=== PATIENT | male | born 1965 | race Caucasian/White ===

== ENCOUNTER 2019-05-12 13:52 | Emergency (ER) | payer OTHER ==
--- OUTSIDE RECORDS SUMMARY | 2019-05-12 14:01 | XMS REPORT | Continuity of Care Document ---
:1965 External Reference #:[id number] Author Name Edyta Manning Care Team Providers Name Role Phone Dennys Angela III, MD Primary Care Physician Unavailable Payers Date Identification Numbers Payment Provider Subscriber Effective: 2011 Policy Number: [id number] [employer] James Jacques PayID: [id number] [address] [place] [address] Advance Directives Type Date Description Status Comment Other Directive 05/07/2017 Health Care Proxy Current and Verified Problems Active Problems Provider Date Hand joint pain Dennys Angela M.D. Onset: 02/07/2012 Disorder of skin and/or subcutaneous tissue Dennys Angela M.D. Onset: 08/2012 Family history of ischemic heart disease Dennys Angela M.D. 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 Tobacco Use Start: Unknown Never Smoked Cigarettes Smoking Status Reviewed: 04/28/19 Never Smoked Cigarettes ETOH Use Denies alcohol use Tobacco Use Start: Unknown Patient has never smoked Recreational Drug Use Denies Drug Use Exercise Type/Frequency Exercises regularly bikes daily Allergies, Adverse Reactions, Alerts Description No Known Drug Allergies Medications Active Medications SIG Qnty Indications Ordering Provider Date No Active Medications Unknown 04/28/2019 History Medications Atorvastatin Calcium take 1 tablet at 90tabs Z82.49 Kingston Rodriguez 06/19/2018 - bedtime Dilan Luo 04/28/2019 20mg Tablets No Active Medications Unknown 05/14/2017 - 06/19/2018 Cephalexin 1 tablet every 8 21caps L01.00 Melania Garza, 05/07/2017 - 500mg hours M.DShashank 05/14/2017 Capsules No Active Medications Unknown 11/10/2014 - 05/07/2017 Pravastatin Sodium 1 po qd 90tabs V17.3 Dennys Merlos 09/08/2013 - 10mg Dilan Angela 11/10/2014 Tablets Medications Administered in Office Medication SIG Qnty Indications Ordering Provider Date Celestone 3 mg and 3mg Blaire Russell, 03/09/2015 Injection MLiza Immunizations CPT Code Status Date Vaccine Lot # [id number] Given 11/11/2015 Influenza Virus Vaccine, Quadrivalent, Split, [id number] Preservative Free [id number] Given 10/29/2009 Tetanus And Diptheria (Td) For Adult Use Preservative Free Vital Signs Date Vital Result Comment 04/28/2019 10:24am Height 73 inches 6'1" Weight 198.00 lb Heart Rate 60 /min BP Systolic Sitting 123 mmHg BP Diastolic Sitting 76 mmHg BMI (Body Mass Index) 26.1 kg/m2 06/19/2018 12:44pm Height 73 inches 6'1" Weight 192.00 lb w/o shoes Heart Rate 68 /min BP Systolic 106 mmHg Lue reg cuff BP Diastolic 70 mmHg Lue reg cuff BP Systolic Sitting 110 mmHg Rue reg cuff BP Diastolic Sitting 74 mmHg Rue reg cuff BP Systolic Standing 104 mmHg Rue BP Diastolic Standing 70 mmHg Rue Respiratory Rate 16 /min BMI (Body Mass Index) 25.3 kg/m2 06/17/2018 10:02am Height 73 inches 6'1" Weight 194.00 lb Heart Rate 56 /min BP Systolic Sitting 118 mmHg BP Diastolic Sitting 64 mmHg O2 % BldC Oximetry 97 % BMI (Body Mass Index) 25.6 kg/m2 02/26/2018 11:04am Height 73 inches 6'1" Weight 200.00 lb Heart Rate 72 /min BP Systolic 118 mmHg BP Diastolic 70 mmHg O2 % BldC Oximetry 96 % BMI (Body Mass Index) 26.4 kg/m2 Waist Circumference 38 05/07/2017 11:31am Weight 199.12 lb Heart Rate 50 /min BP Systolic 124 mmHg BP Diastolic 76 mmHg Body Temperature 97.0 F O2 % BldC Oximetry 98 % 02/07/2017 1:28pm Height 72.5 inches 6'0.50" Weight 194.00 lb Heart Rate 54 /min BP Systolic Sitting 124 mmHg BP Diastolic Sitting 78 mmHg Respiratory Rate 16 /min O2 % BldC Oximetry 98 % BMI (Body Mass Index) 25.9 kg/m2 11/11/2015 10:14am Height 72.5 inches 6'0.50" Weight 197.00 lb Heart Rate 48 /min BP Systolic Sitting 99 mmHg BP Diastolic Sitting 57 mmHg Body Temperature 96.6 F O2 % BldC Oximetry 97 % BMI (Body Mass Index) 26.3 kg/m2 05/14/2015 3:08pm Weight 195.25 lb Heart Rate 70 /min BP Systolic Sitting 117 mmHg BP Diastolic Sitting 73 mmHg Pain Level 2 03/09/2015 10:59am Height 73 inches 6'1" Weight 190.00 lb Pain Level 1 BMI (Body Mass Index) 25.1 kg/m2 01/07/2015 8:18am Height 73 inches 6'1" Weight 194.00 lb Heart Rate 48 /min BP Systolic 109 mmHg BP Diastolic 65 mmHg BMI (Body Mass Index) 25.6 kg/m2 11/10/2014 10:54am Height 73 inches 6'1" Weight 194.50 lb Heart Rate 80 /min BP Systolic Sitting 108 mmHg BP Diastolic Sitting 78 mmHg Body Temperature 96.1 F BMI (Body Mass Index) 25.7 kg/m2 09/08/2013 9:50am Height 73 inches 6'1" Weight 193.00 lb Heart Rate 62 /min BP Systolic Sitting 118 mmHg BP Diastolic Sitting 74 mmHg BMI (Body Mass Index) 25.5 kg/m2 06/19/2012 3:53pm Height 73 inches 6'1" Weight 190.38 lb Heart Rate 60 /min BP Systolic Sitting 124 mmHg BP Diastolic Sitting 82 mmHg BMI (Body Mass Index) 25.1 kg/m2 06/18/2012 4:08pm Height 73 inches 6'1" Weight 191.00 lb Heart Rate 60 /min BP Systolic Sitting 110 mmHg BP Diastolic Sitting 80 mmHg BMI (Body Mass Index) 25.2 kg/m2 06/13/2012 3:29pm Height 72.75 inches 6'0.75" Weight 190.38 lb Heart Rate 72 /min BP Systolic Sitting 118 mmHg BP Diastolic Sitting 68 mmHg BMI (Body Mass Index) 25.3 kg/m2 02/07/2012 3:18pm Height 72.5 inches 6'0.50" Weight 196.00 lb Heart Rate 72 /min BP Systolic Sitting 124 mmHg BP Diastolic Sitting 64 mmHg BMI (Body Mass Index) 26.2 kg/m2 Results Test Date Facility Test Result H/L Range Note Lipid Profile 04/23/2019 [facility] Triglycerides 68 mg/dL 1 (Trig/Chol/HDL) [address] [place] [address] [phone] Cholesterol 188 mg/dL 2 HDL Cholesterol 49.4 mg/dL 3 LDL Cholesterol 125 mg/dL 4 Laboratory 04/23/2019 [facility] Glucose 96 mg/dL N 70-100 5 test finding [address] [place] [address] [phone] Laboratory 02/26/2018 [facility] Hepatitis C Nonreactive Nonreactive test finding [address] [place] [address] [phone] PSA Screening 0.398 ng/mL N 0-4.000 6 CRP High Sensitivity 0.36 mg/L 7 Lipid Profile 02/19/2018 [facility] Triglycerides 64 mg/dL 8 (Trig/Chol/HDL) [address] [place] [address] [phone] Cholesterol 176 mg/dL 9 HDL Cholesterol 48.5 mg/dL 10 LDL Cholesterol 115 mg/dL 11 Laboratory test 02/19/2018 [facility] Glucose 89 mg/dL N 70- 100 finding [address] [place] [address] [phone] Lipid Profile 01/29/2017 [facility] Triglycerides 59 mg/dL N 12 (Trig/Chol/HDL) [address] [place], [place] [id number] [phone] Cholesterol 165 mg/dL N 13 HDL Cholesterol 42.5 mg/dL N 14 LDL Cholesterol 111 mg/dL N 15 Laboratory test 01/29/2017 [facility] Glucose 92 mg/dL N 70- 100 16 finding [address] [place] [address] [phone] Lipid Profile 11/05/2015 [facility] Triglycerides 87 mg/dL N 17 (Trig/Chol/HDL) [address] [place], [place] [address] [phone] Cholesterol 179 mg/dL N 18 HDL Cholesterol 42.9 mg/dL N 19 LDL Cholesterol 119 mg/dL N 20 Laboratory test 11/05/2015 [facility] Glucose 88 mg/dL N 70- 100 finding [address] [place], [place] [id number] [phone] Laboratory test 10/30/2014 [facility] Ast 16 U/L N 13-39 21, 22 finding [address] [place] [address] [phone] Alt 17 U/L N 7-52 23 Lipid Profile 10/30/2014 [facility] Triglycerides 78 mg/dL N 24 (Trig/Chol/HDL) [address] [place] [address] [phone] Cholesterol 192 mg/dL N 25 HDL Cholesterol 43.2 mg/dL N 26 LDL Cholesterol 133 mg/dL N 27 Laboratory test 09/03/2013 [facility] Glucose 98 mg/dL 70- 100 28 finding [address] [place], [place] [id number] [phone] Lipid Panel 09/03/2013 [facility] Triglycerides 72 mg/dL 40- 200 [address] [place], [place] [id number] [phone] Cholesterol 198 mg/dL Less than 200 HDL Cholesterol 47 mg/dL 40-60 29 Cholesterol/HDL Ratio 4.2 Average 1-4.44 LDL Cholesterol 136.6 High Less Than 100 30 Lipid Profile 03/04/2012 [facility] Triglyceride 48 mg/dL 40- 200 (Trig/Chol/HDL) [address] [place] [address] [phone] Cholesterol 174 mg/dL Less Than 200 31 High Density Lipoprotein 43 mg/dL 40-60 32 Cholesterol/HDL Ratio 4.05 AVERAGE 1-4.97 Low Density Lipoprotein 121 mg/dL High Less Than 100 33 CBC Auto Diff 03/04/2012 [facility] White Blood 5.6 CUMM 4.8- 10.8 [address] [facility] [place] [address] [phone] Red Cell Count 4.91 CUMM 4.6-6.2 Hemoglobin 14.9 g/dL 14.0-18.0 Hematocrit 42 % 42-52 Mean Corpuscular Volume 86 um3 80-94 Mean Corpuscular Hemoglob 30 pg 27-31 Mean Corpuscular HGB Cone 35 g/dL 32-36 Redcell Distribution WDTH 13 % 10.5-15 Platelet Count 231 CUMM 150-450 Mean Platelet Volume 7.9 um3 7.4-10.4 Gran % 60.2 % 38-83 Lymph % 27.8 % 25-47 Mononuclear % 7.9 % 1-9 Eosinophil % 3.6 % 0-6 Basophil % 0.5 % 0-2 Abs Lymphs 1.6 1.0-4.8 Abs Mononuclear 0.4 0-0.8 Absolute Neutrophil Count 3.4 1.5-7.7 Abs Eosinophils 0.2 0-0.6 Abs Basophils 0 0-0.2 Comp Metabolic Panel 03/04/2012 [facility] Sodium 137 mmol/L 135-[address] [place] [address] [phone] Potassium 4.2 mmol/L 3.5-5.0 Chloride 103 mmol/L 101-111 Co2 (Carbon Dioxide) 30.0 mmol/L 22-32 Anion Gap 4.0 mmol/L 2-11 34 Glucose 90 mg/dL 70-100 BUN 11 mg/dL 6-24 Creatinine 0.9 mg/dL 0.50-1.40 One Over Creatinine 1.11 BUN/Creatinine Ratio 12.2 8-20 Calcium 9.5 mg/dL 8.1-9.9 Total Protein 6.7 GM/DL 6.2-8.1 Albumin 4.4 GM/DL 3.6-5.4 Globulin 2.3 GM/DL 2-4 Albumin/Globulin Ratio 1.9 1-3 Bilirubin Total 1.0 mg/dL 0.4-1.5 35 Alkaline Phosphatase 76 U/L 39-117 Alt (SGPT) 20 U/L 17-63 Ast (Sgot) 22 U/L 12-42 eGFR Non- 90.1 > 60 eGFR 115.8 > [address] Angela's Lab Panel 03/04/2012 [facility] TSH 3.63 MIU/ML 0.34-5.[address] [place] [address] [phone] 1 Desirable: <150 Borderline High: 150-199 High: 200-499 Very High: >500 2 Desirable: <200 Borderline High: 200-239 High: >239 3 Low: <40 Desirable: 40-60 High: >60 4 Desirable: <100 Near Optimal: 100-129 Borderline High: 130-159 High: 160-189 Very High: >189 5 FASTING 6 Serum levels of PSA measured using the Emile Manatron DXI Hybritech immunoassay should not be interpreted as absolute evidence of the presence or absence of disease. The PSA value should be used in conjunction with other pertinent clinical diagnostic procedures. A PSA value in the range of 0.1 to 0.6 ng/ml is indeterminate if being used as an indicator of recurrent or residual disease. The values obtained with different assay methods or kits cannot be used interchangeably. 7 Low risk: <1.00 Average risk: 1.00-3.00 High risk: >3.00 8 Desirable: <150 Borderline High: 150-199 High: 200-499 Very High: >500 9 Desirable: <200 Borderline High: 200-239 High: >239 10 Low: <40 Desirable: 40-60 High: >60 11 Desirable: <100 Near Optimal: 100-129 Borderline High: 130-159 High: 160-189 Very High: >189 12 Desirable <150 Borderline high 150-199 High 200-499 Very High >500 13 Desirable <200 Borderline high 200-239 High >239 14 Low <40 Desirable: 40-60 High: >60 15 Desirable: <100 mg/dL Near Optimal: 100-129 mg/dL Borderline High: 130-159 mg/dL High: 160-189 mg/dL Very High: >189 mg/dL 16 FASTING 10 HOUR 17 Desirable <150 Borderline high 150-199 High 200-499 Very High >500 18 Desirable <200 Borderline high 200-239 High >239 19 Low <40 Desirable: 40-60 High: >60 20 Desirable: <100 mg/dL Near Optimal: 100-129 mg/dL Borderline High: 130-159 mg/dL High: 160-189 mg/dL Very High: >189 mg/dL 21 PT IS FASTING 22 PT IS FASTING 23 PT IS FASTING 24 Desirable <150 Borderline high 150-199 High 200-499 Very High >500 25 Desirable <200 Borderline high 200-239 High >239 26 Low <40 Desirable: 40-60 High: >60 27 Desirable <100 Near Optimal 100-129 Borderline high 130-159 High 160-189 Very High >189 28 PT IS FASTING 29 HDL Interpretation: Undesirable: High Risk: Less than 40 mg/dL Desirable: Low Risk: Greater than 60 mg/dL 30 LDL Interpretation: Low Risk Optimal Level: LDL Less than 100 mg/dL Near or Above Optimal: LDL 100-129 mg/dL Borderline High Risk: LDL 130-159 mg/dL High Risk: LDL 160-189 mg/dL Very High Risk: LDL Greater than 189 mg/dL 31 CHOLESTEROL INTERPRETATION: Desirable: Less than 200 MG/DL Borderline-High Risk: 200-239 MG/DL High-Risk: 240 MG/DL and over 32 HDL INTERPRETATION: Undesirable: High Risk: Less than 40 MG/DL Desirable: Low Risk: Greater than 60 MG/DL 33 LDL INTERPRETATION: Low Risk Optimal Level: LDL Less than 100 MG/DL Near or Above Optimal: LDL 100-129 MG/DL Borderline High Risk: LDL 130-159 MG/DL High Risk: LDL 160-189 MG/DL Very High Risk: LDL Greater than 189 MG/DL 34 Anion gap measurement may be of limited value in the presence of any alkalosis, especially in a combined acid base disorder. . 35 A metabolite of Naproxen, O-desmethylnaproxen, has been shown to interfere with the Jendrassik-Mayra method for measuring total bilirubin. Samples from patients who have taken Naproxen have shown spurious elevation in total bilirubin levels. 36 Because ethnic data is not always readily available, this report includes an eGFR for both -Americans and non- Americans. The National Kidney Disease Education Program (NKDEP) does not endorse the use of the MDRD equation for patients that are not between the ages of 18 and 70, are , have extremes of body size, muscle mass, or nutritional status, or are non- or non-. According to the National Kidney Foundation, irrespective of diagnosis, the stage of the disease is based on the level of kidney function: Stage Description GFR(mL/min/1.73 m(2)) 1 Kidney damage with normal or decreased GFR 90 2 Kidney damage with mild decrease in GFR 60-89 3 Moderate decrease in GFR 30-59 4 Severe decrease in GFR 15-29 5 Kidney failure <15 (or dialysis) Procedures Date Code Description Status 06/19/2018 94283 EKG Tracing & Interpretation Completed 02/26/2018 52045 Admin & Interp Of Health Risk Assessment w/ Patient Completed 02/07/2017 26394 Admin & Interp Of Health Risk Assessment w/ Patient Completed 03/09/2015 41814 Injection, Carpal Tunnel Completed 11/03/2013 [id number] Colonoscopy Completed Encounters Type Date Location Provider Dx Diagnosis Office Visit 06/19/2018 [facility] Kingston Rodriguez Z82.49 Family hx of 1:00p Of Nhi Luo M.D. ischem heart dis and oth dis of the circ sys E78.01 Familial hypercholesterolemia Office Visit 06/17/2018 [facility] Dennys Merlos Z82.49 Family hx of 10:00a Dee Angela M.D. ischem heart dis and oth dis of the circ sys Office Visit 02/26/2018 [facility] Aron Merlos Z00.00 Encntr for 11:00a Dee Angela M.D. general adult medical exam w/o abnormal findings Z11.59 Encounter for screening for other viral diseases Z12.5 Encounter for screening for malignant neoplasm of prostate Z13.6 Encounter for screening for cardiovascular disorders Office Visit 05/07/2017 [facility] Melania L01.00 Impetigo, 11:10a Dee Garza M.D. unspecified L23.7 Allergic contact dermatitis due to plants, except food Office Visit 02/07/2017 [facility] Aron Merlos Z00.00 Encntr for 1:20p Dee Angela M.D. general adult medical exam w/o abnormal findings Office Visit 11/11/2015 [facility] Mary Lou Merlos Z00.00 Encntr for 10:00a Rachel Angela M.D. 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 354.2 Lesion Ulnar Nerve Office Visit 01/07/2015 8:15a Orthopedic Zane Mcghee 723.4 Brachial Neuritis Services Of Dilan Or Radiculitis NOS C.M.A. 782.0 Skin Sensation Disturbance Office Visit 11/10/2014 10:40a [facility] Aron Merlos V70.0 Examination Medicine - Rachel Angela M.D. General Medical Routine AT Health Care Facility V17.3 History Family Ischemic Heart Disease Office Visit 09/08/2013 9:20a [facility] Dennys Merlos V70.0 Examination Medicine - Rachel Angela M.D. General Medical Routine AT Health Care Facility 723.4 Brachial Neuritis Or Radiculitis NOS V17.3 History Family Ischemic Heart Disease V76.51 Special Screening For Malignant Neoplasms Colon Office Visit 08/01/2013 9:15a Orthopedic Zane Mcghee 723.4 Brachial Neuritis Services Of M.D. Or Radiculitis NOS C.M.A. Office Visit 09/24/2012 4:30p Mariann Mcghee 723.4 Brachial Neuritis Services Of M.D. Or Radiculitis NOS C.M.A. Office Visit 07/30/2012 8:15a Martín Tinsley3.4 Brachial Neuritis Services Of M.D. Or Radiculitis NOS C.M.A. Office Visit 06/25/2012 1:00p Mariann Mcghee 723.4 Brachial Neuritis Services Of M.D. Or Radiculitis NOS C.M.A. Office Visit 06/19/2012 3:40p [facility] Aron Merlos 719.41 Pain Joint Medicine - Rachel Angela M.D. Shoulder Region Office Visit 06/18/2012 4:00p [facility] Aron Merlos 719.41 [facility] 723.1 Cervicalgia Office Visit 06/13/2012 3:20p [facility] Ortega Rodriguez 726.10 Bursae & Tendon Medicine - Dilan Cotton,FACP [facility] Unspec Office Visit 02/07/2012 3:00p [facility] Aron Merlos V70.0 Examination Medicine - Dilan Angela [facility] 719.44 Pain Joint Hand 709.9 Skin & Subcutaneous Tissue Disorders Unspec Plan of Treatment Future Appointment(s):07/06/2020 9:20 am - Dennys Angela M.D. at [facility] Internal Medicine-Ctonnqyna63/01/2019 - Dennys Angela M.D.Z00.00 Encounter for general adult medical examination without abnoComments:Discussed the new shingles vaccine; other shots current. Colon exam due again in 2023. ( +) past dental, eye exams. but pt due for a dental recheck.Follow up:yearly or prnZ82.49 Family history of ischemic heart disease and other diseasesComments: Pt with no cardiac c/o or other risk factors. 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 Pt would like to proceed and he will contact cardiology to re-order if needed. Discussed statin Rx for risk reduction if desired. Cholesterol up a bit more this year at 188; ASCVD risk score 5.4%
[2019-05-12 14:23] VITALS: BP 110/66
--- NOTE | 2019-05-12 14:45 | UC ---
HPI Febrile Illness - HPI Summary HPI Summary: 54yo male with the onset yesterday of fever/chills/fatigue/and myalgias that started yesterday AM NO BACA no sore throat no URI symptoms no cough no cp or sob no UTI symptoms no URI symptoms no n/v/d anorexic had gum surgery early this month - History of Current Complaint Chief Complaint: UCGeneralIllness Time Seen by Provider: 05/12/19 14:27 Hx Obtained From: Patient Onset/Duration: Started Hours Ago - yesterday on arising Timing: Constant Initial Severity: Mild Current Severity: Mild Pain Intensity: 0 Pain Scale Used: 0-10 Numeric Aggravating Factors: Nothing Alleviating Factors: Nothing Associated Signs and Symptoms: Chills, Myalgia, Other: - fever and anoreia - Risk Factors Pseudomonas Risk Factors: Negative Serious Bacterial Infection Risk Factors: Negative - Allergy/Home Medications Allergies/Adverse Reactions: Allergies Allergy/AdvReac Type Severity Reaction Status Date / Time No Known Allergies Allergy Verified 05/12/19 14:23 PMH/Surg Hx/FS Hx/Imm Hx Previously Healthy: Yes - Surgical History Surgical History: Yes Surgery Procedure, Year, and Place: HERNIA REPAIR X 2 - Family History Known Family History: Positive: Hypertension - Social History Alcohol Use: None Substance Use Type: None Smoking Status (MU): Never Smoked Tobacco Review of Systems All Other Systems Reviewed And Are Negative: Yes Constitutional: Positive: Fever, Chills, Fatigue ENT: Positive: Negative Respiratory: Positive: Negative Cardiovascular: Positive: Negative Gastrointestinal: Positive: Negative Genitourinary: Positive: Negative Motor: Positive: Negative Neurovascular: Positive: Negative Musculoskeletal: Positive: Myalgia Neurological: Positive: Negative Psychological: Positive: Negative Physical Exam Triage Information Reviewed: Yes Appearance: Well-Appearing, No Pain Distress, Well-Nourished Vital Signs: Initial Vital Signs Temp 100.9 F 05/12/19 14:18 Pulse 87 05/12/19 14:18 Resp 18 05/12/19 14:18 BP 110/66 05/12/19 14:18 Pulse Ox 96 05/12/19 14:18 Vital Signs Reviewed: Yes Eyes: Positive: Conjunctiva Clear ENT: Positive: Hearing grossly normal. Negative: Nasal congestion, Nasal drainage, Tonsillar swelling, Tonsillar exudate, Hoarse voice Dental Exam: Normal Dental: Positive: Other: - site of gum surgery does not appear infected Neck exam: Normal Neck: Positive: Supple, Nontender, No Lymphadenopathy Respiratory: Positive: Lungs clear, Normal breath sounds, No respiratory distress, No accessory muscle use Cardiovascular: Positive: RRR, No Murmur, Pulses Normal Abdomen Description: Positive: Nontender, No Organomegaly, Soft Bowel Sounds: Positive: Present Musculoskeletal: Positive: ROM Intact, No Edema Neurological: Positive: Alert Psychological Exam: Normal Skin Exam: Normal Course/Dx - Course Course Of Treatment: patient relates that he is travelling to [facility] tomorrow UA ++ protein - Diagnoses Provider Diagnosis: Acute febrile illness Discharge - Sign-Out/Discharge Documenting (check all that apply): Patient Departure All imaging exams completed and their final reports reviewed: No Studies - Discharge Plan Condition: Stable Disposition: HOME Patient Education Materials: Fever in Adults (ED), Lyme Disease (ED) Referrals: Dennys Angela MD [Primary Care Provider] - As Soon As Possible Additional Instructions: I am unsure of the cause of your fever a blood count and lyme test are pending even if you Lyme test is (-) I would complete the full coarse as discussed you could still have LD with a (-) test early in the illness recheck for new or worsening symptoms your urine analysis showed ++ protein this should be rechecked by your MD - Billing Disposition and Condition Condition: STABLE Disposition: Home
[2019-05-12 19:13] LABS: ABS Lymphocytes 0.3 10^3/ul (1.0-4.8); ABS Monocytes 0.2 10^3/ul (0-0.8); ABS Neutrophils 4.3 10^3/ul (1.5-7.7); Hematocrit 45 % (42-52); Hemoglobin 15.6 g/dL (14.0-18.0); Lymphocyte % 5.9 %; Mean Corpuscular HGB Conc 35 g/dL (31-36); Mean Corpuscular Hemoglobin 30 pg (27-31); Mean Corpuscular Volume 85 fL (80-94); Mean Platelet Volume 7.7 fL (7.4-10.4); Nucleated Red Blood Cells % 0.7; Platelet Count 135 10^3/uL (150-450); Red Blood Count 5.27 10^6 /uL (4.18-5.48); Red Cell Distribution Width 13 % (10-15); White Blood Count 4.7 10^3/uL (3.5-10.8)
== END 2019-05-12 15:38 | disposition home or self-care (01) ==
LOC: UCEAST 13:52
DX: R50.9 Fever, unspecified (principal)
CPT/HCPCS: 36415; 81003; 85025; 86618; 99212; G0463